=== PATIENT | female | born 1985 | race African-American/Black ===

== ENCOUNTER 2020-06-09 10:08 | Emergency (ER) | payer OTHER ==
[~2020-06-09] VITALS: Ht 172.7 cm; Wt 115.0 kg
[2020-06-09] MEDS ORDERED: IV NORMAL SALINE 1000ML BAG 1,000 ML IV ONE (10:30)
--- NOTE | 2020-06-09 10:33 | PHYS DOC ---
Past Medical History Past Medical History: No Pertinent History Past Surgical History: No Surgical History Smoking Status: Current Every Day Smoker Alcohol Use: Occasionally General Adult EDM: Chief Complaint: DIZZY/LIGHT HEADED HPI: HPI: 34-year-old female with no reported significant past medical history, who presents for evaluation of lightheadedness and dull gradual onset bifrontal headache that began this morning around 7:45 AM while working. She also reports a 1 week history of bilateral hand swelling and tingling sensation. No chest pain, dyspnea, palpitations, abdominal pain, nausea or vomiting. No syncope. Review of Systems: Review of Systems: Gen: No fever, chills. Eyes: No blurred vision, diplopia. ENT: No nasal congestion, sore throat. CV: No CP, palpitations. Resp. No SOB, cough. GI: No abd pain, N/V. : No dysuria, hematuria. Neuro: No weakness. Reports headache, lightheadedness. MSK: No myalgia, arthralgia, back pain. Reports hand swelling. Skin: No acute rash or lesion. Remainder of systems reviewed and negative unless otherwise specified. Heart Score: Risk Factors: Risk Factors: DM, Current or recent (<one month) smoker, HTN, HLP, family history of CAD, obesity. Risk Scores: Score 0 - 3: 2.5% MACE over next 6 weeks - Discharge Home Score 4 - 6: 20.3% MACE over next 6 weeks - Admit for Clinical Observation Score 7 - 10: 72.7% MACE over next 6 weeks - Early Invasive Strategies Allergies: Allergies: Allergies Coded Allergies Type Severity Reaction Last Updated Verified No Known Drug Allergies 06/09/20 No Physical Exam: PE: Gen: NAD. Well nourished. Head: NC/AT. Eyes: No scleral icterus. No conjunctival injection. PERRL. EOMI. No inducible nystagmus. ENT: MMM. Posterior OP clear. Neck: Supple. NT. CV: RRR. No M/R/G. Peripheral pulses intact. Resp: CTAB. Abd: Soft. NT. ND. MSK: No peripheral cyanosis. No edema. Neuro: A&Ox3. Strength & sensation grossly intact throughout. No dysmetria. Skin. Warm. Dry. Psych: Appropriate mood & affect. Current Patient Data: Labs: Laboratory Tests Test 06/09/20 10:34 06/09/20 10:42 Bedside Urine HCG, Qualitative Hcg negative (Negative) White Blood Count 4.9 x10^3/uL (4.0-11.0) Red Blood Count 4.51 x10^6/uL (3.50-5.40) Hemoglobin 13.7 g/dL (12.0-15.5) Hematocrit 40.9 % (36.0-47.0) Mean Corpuscular Volume 91 fL (79-100) Mean Corpuscular Hemoglobin 30 pg (25-35) Mean Corpuscular Hemoglobin Concent 33 g/dL (31-37) Red Cell Distribution Width 13.6 % (11.5-14.5) Platelet Count 205 x10^3/uL (140-400) Neutrophils (%) (Auto) 60 % (31-73) Lymphocytes (%) (Auto) 30 % (24-48) Monocytes (%) (Auto) 8 % (0-9) Eosinophils (%) (Auto) 1 % (0-3) Basophils (%) (Auto) 1 % (0-3) Neutrophils # (Auto) 2.9 x10^3/uL (1.8-7.7) Lymphocytes # (Auto) 1.5 x10^3/uL (1.0-4.8) Monocytes # (Auto) 0.4 x10^3/uL (0.0-1.1) Eosinophils # (Auto) 0.1 x10^3/uL (0.0-0.7) Basophils # (Auto) 0.0 x10^3/uL (0.0-0.2) Sodium Level 139 mmol/L (136-145) Chloride Level 104 mmol/L (98-107) Carbon Dioxide Level 25 mmol/L (21-32) Anion Gap 10 (6-14) Blood Urea Nitrogen 14 mg/dL (7-20) Estimated GFR (Cockcroft-Gault) 76.3 BUN/Creatinine Ratio 14 (6-20) Glucose Level 87 mg/dL (70-99) Calcium Level 9.0 mg/dL (8.5-10.1) Total Bilirubin 0.4 mg/dL (0.2-1.0) Aspartate Amino Transf (AST/SGOT) 20 U/L (15-37) Alkaline Phosphatase 61 U/L (46-116) Troponin I Quantitative < 0.017 ng/mL (0.000-0.055) Total Protein 6.6 g/dL (6.4-8.2) Albumin 3.4 g/dL (3.4-5.0) Albumin/Globulin Ratio 1.1 (1.0-1.7) Vital Signs: Vital Signs Date Time Temp Pulse Resp B/P (MAP) Pulse Ox O2 Delivery O2 Flow Rate FiO2 06/09/20 10:20 98.1 90 18 148/88 (108) 100 98.1 EKG: EKG: EKG at 1038 Sinus rhythm. Heart rate 70. Normal intervals. No STEMI. In terpreted by me. Radiology/Procedures: Radiology/Procedures: CT HEAD INDICATION: Frontal headache, dizziness / Spl. Instructions: / History: COMPARISON: None Available. Exposure: One or more of the following individualized dose reduction techniques were utilized for this examination: 1. Automated exposure control 2. Adjustment of the mA and/or kV according to patient size 3. Use of iterative reconstruction technique TECHNIQUE: 5 mm contiguous axial images were obtained from the skull base to the vertex in both bone and soft tissue algorithm. FINDINGS: No abnormal attenuation within the brain parenchyma. No evidence of acute intracranial hemorrhage. No extra-axial fluid collections. No mass effect or midline shift. Ventricular size is appropriate. Basal cisterns are patent. No fractures identified.Feldman-white differentiation is preserved.Globes and orbits are within normal limits. Paranasal sinuses and mastoid air cells are clear. IMPRESSION: No acute intracranial findings. Electronically signed by: Juan Alberto Springer MD (06/09/2020 11:01 AM) [id number] Course & Med Decision Making: Course & Med Decision Making Pertinent Labs and Imaging studies reviewed. (See chart for details) In summary, 34-year-old female who presents for evaluation of frontal headache and lightheadedness that began this morning. Also reports 1 week of bilateral hand swelling, but no cardiorespiratory complaints or leg swelling. No focal neurological deficits. No meningismus. No dysmetria. NIH stroke score 0. No inducible nystagmus. Her hands and wrists appear unremarkable to me without significant notable swelling. She is neurovascular intact distally with brisk capillary refill. Lab work is otherwise unremarkable. Troponin negative. EKG shows no acute injury pattern. CT head without contrast is negative for acute intracranial pathology. She remains well-appearing and nontoxic. No acute emergent pathology was identified. She will be discharged home with outpatient follow-up. Return precautions given. Anh Disclaimer: Anh Disclaimer: This electronic medical record was generated, in whole or in part, using a voice recognition dictation system. Departure Departure Impression: Primary Impression: Lightheadedness Additional Impression: Headache Disposition: 01 DC HOME SELF CARE/HOMELESS Condition: STABLE Patient Instructions: Dizziness, Anuc-ja-Aihc, General Headache Without Cause, Sqco-hc-Amih Scripts Butalb/Acetaminophen/Caffeine ([id number] CP) 1 Each Capsule 1 CAP PO TID for headache, #15 CAP 0 Refills Prov: BALJEET MANSFIELD DO 06/09/20 BALJEET MANSFIELD DO Jun 09, 2020 10:33
[2020-06-09 10:41] VITALS: BP 147/98
[2020-06-09 10:50] LABS: BASO % 1 % (0-3); EOS # 0.1 x10^3/uL (0.0-0.7); EOS % 1 % (0-3); HEMATOCRIT 40.9 % (36.0-47.0); HEMOGLOBIN 13.7 g/dL (12.0-15.5); LYMPH # 1.5 x10^3/uL (1.0-4.8); LYMPH % 30 % (24-48); MEAN CORPUSCULAR HEMOGLOBIN 30 pg (25-35); MEAN CORPUSCULAR HGB CONC 33 g/dL (31-37); MEAN CORPUSCULAR VOLUME 91 fL (79-100); MONO # 0.4 x10^3/uL (0.0-1.1); MONO % 8 % (0-9); NEUT # 2.9 x10^3/uL (1.8-7.7); NEUT % 60 % (31-73); PLATELET COUNT 205 x10^3/uL (140-400); RED BLOOD COUNT 4.51 x10^6/uL (3.50-5.40); RED CELL DISTRIBUTION WIDTH 13.6 % (11.5-14.5); WHITE BLOOD COUNT 4.9 x10^3/uL (4.0-11.0)
--- NOTE | 2020-06-09 11:03 | RAD ---
CT HEAD INDICATION: Frontal headache, dizziness / Spl. Instructions: / History: COMPARISON: None Available. Exposure: One or more of the following individualized dose reduction techniques were utilized for thi s examination: 1. Automated exposure control 2. Adjustment of the mA and/or kV according to patient size 3. Use of iterative reconstruction technique TECHNIQUE: 5 mm contiguous axial images were obtained from the skull base to the vertex in both bone and soft tissue algorithm. FINDINGS: No abnormal attenuation within the brain parenchyma. No evidence of acute intracranial hemorrhage. No extra-axial fluid collections. No mass effect or midline shift. Ventricular size is appropriate. Basal cisterns are patent. No fractures identified.Feldman-white differentiation is preserved.Globes and orbits are within normal l imits. Paranasal sinuses and mastoid air cells are clear. IMPRESSION: No acute intracranial findings. Electronically signed by: Juan Alberto Springer MD (06/09/2020 11:01 AM) [id number]
[2020-06-09 11:12] LABS: GFR 76.3
[2020-06-09 11:17] LABS: ALBUMIN 3.4 g/dL (3.4-5.0); ALBUMIN/GLOBULIN RATIO 1.1 (1.0-1.7); TOTAL BILIRUBIN 0.4 mg/dL (0.2-1.0); TOTAL PROTEIN 6.6 g/dL (6.4-8.2)
[2020-06-09] MEDS ORDERED: BUTA1CAP27 PO (11:44)
--- NOTE | 2020-06-09 14:38 | EKG ---
[facility] [address] [place] [address] Test Date: 2020-06-09 Test Time: 10:38:33 Pat Name: CHRISSY LEMUS Department: Room: Gender: F Food [employer]: : 1985 Requested By: BALJEET MANSFIELD Order Number: [id number] Reading MD: Measurements Intervals [place] Rate: 70 P: 27 IA: 176 QRS: 43 QRSD: 72 T: 34 QT: 354 QTc: 385 Interpretive Statements SINUS RHYTHM NORMAL ECG RI6.01 No previous ECG available for comparison
== END 2020-06-09 12:30 | disposition home or self-care (01) ==
LOC: ER 10:08
DX: R42 Dizziness and giddiness (principal); R51.9 Headache, unspecified; R20.2 Paresthesia of skin; R22.33 Localized swelling, mass and lump, upper limb, bilateral; F17.200 Nicotine dependence, unspecified, uncomplicated
CPT/HCPCS: 36415; 70450; 80053; 81025; 83735; 84484; 85025; 93005; 96360; 96361; 99285; J7030

== ENCOUNTER 2021-01-01 20:33 | Emergency (ER) | payer OTHER ==
[~2021-01-01] VITALS: Ht 172.7 cm; Wt 105.0 kg
[~2021-01-01 20:33] MED LIST: BUTA1CAP27 PO
[2021-01-01] MEDS ORDERED: LIDOCAINE 2%/EPI 1:100,000 20 ML VIAL. INJ ONE (20:45)
[2021-01-01] MEDS ORDERED: MUPIROCIN 2 % OINTMENT 22GM TUBE. TP ONE (20:45)
[2021-01-01] MEDS ORDERED: IBUPROFEN 200 MG TABLET. PO ONE (21:30)
[2021-01-01 21:41] VITALS: BP 124/85
--- NOTE | 2021-01-01 22:21 | RAD ---
Exam: Right and left forearm 2 views INDICATION: Bilateral forearm laceration. TECHNIQUE: Frontal and lateral views of the right and left forearm Comparisons: None FINDINGS: Left: Bone mineralization is normal. No acute or healed fractures. Mild soft tissue irregularity at the brett odin aspect of the mid forearm. No radiopaque foreign body identified. Joint spaces are well-maintaine d. Right: Bone mineralization is normal. No acute or healed fractures. Soft tissue irregularity along the dorsa l aspect of the mid forearm. Joint spaces are well-maintained. IMPRESSION: No acute osseous abnormality of the right or left forearm. No radiopaque foreign body identified. Electronically signed by: Claudio Ruffin MD (01/01/2021 10:19 PM) MYRTLE
[2021-01-01] MEDS ORDERED: MUPI22OI2 TP (23:50)
--- NOTE | 2021-01-01 23:51 | PHYS DOC ---
Past Medical History Past Medical History: No Pertinent History Past Surgical History: No Surgical History Smoking Status: Current Every Day Smoker Alcohol Use: Heavy Drug Use: Marijuana General Adult EDM: Chief Complaint: LACERATION/AVULSION HPI: HPI: Patient is a 35 year old female presents with bilateral forearm lacerations after "punching" through a living room window when she got upset with her family just prior to arrival. Patient reports she has been drinking ETOH. Reports she was mad because her sister didn't ask her to be the maid of honor in the sisters wedding. Reports she was so mad that she hit the window with both of her hands and it ended up actually breaking. Reports significant amount of blood from both forearms. Denies . Review of Systems: Review of Systems: Constitutional: Denies fever or chills Eyes: Denies redness or eye pain HENT: Denies nasal congestion or sore throat Respiratory: Denies cough or shortness of breath Cardiovascular: Denies chest pain or palpitations GI: Denies abdominal pain, nausea, or vomiting : Denies dysuria or hematuria Musculoskeletal: Denies back pain; reports bilateral forearm pain at site of lacerations Integument: Denies rash; reports lacerations to bilateral forearms Neurologic: Denies headache, focal weakness or sensory changes Complete systems were reviewed and found to be within normal limits, except as documented in this note. Heart Score: C/O Chest Pain: N/A Current Medications: Current Medications Medications (Trade) Dose Ordered Sig/Jose Start Time Stop Time Status Last Admin Dose Admin Ibuprofen (Motrin) 600 mg 1X ONCE 01/01/21 21:30 01/01/21 21:31 DC Lidocaine/ Epinephrine (LIDOCAINE 2%-EPI 1:100,000 multi-dose) 20 ml 1X ONCE 01/01/21 20:45 01/01/21 20:46 DC 01/01/21 20:54 20 ML Mupirocin (Bactroban) 1 dinorah 1X ONCE 01/01/21 20:45 01/01/21 20:46 DC 01/01/21 20:54 1 DINORAH Allergies: Allergies: Allergies Coded Allergies Type Severity Reaction Last Updated Verified No Known Drug Allergies 06/09/20 No Physical Exam: PE: Constitutional: Well developed, well nourished, no acute distress, non-toxic appearance HENT: Normocephalic, atraumatic Eyes: PERRL, EOMI, conjunctiva normal, no discharge Neck: Normal range of motion, no tenderness, supple Lungs & Thorax: No respiratory distress, equal chest rise and fall Abdomen: Soft, no tenderness Skin: Warm, dry, no erythema, lacerations as below: Right medial mid-forearm: 1) more proximal laceration: 6cm 2) more distal laceration: 2cm Left medial mid-forearm: proximal laceration: 4cm Left wrist anterior laceration: 2cm Extremities: Bilateral forearm tenderness at site of lacerations, ROM intact, no edema Neurologic: Alert and oriented X 3, normal motor function, normal sensory function, no focal deficits noted Psychologic: Affect normal, judgment normal Current Patient Data: Vital Signs: Vital Signs Date Time Temp Pulse Resp B/P (MAP) Pulse Ox O2 Delivery O2 Flow Rate FiO2 01/01/21 21:06 98.4 108 24 147/98 (114) 98 Room Air 98.4 EKG: EKG: [] Radiology/Procedures: Radiology/Procedures: PROCEDURE: FOREARM BILAT Exam: Right and left forearm 2 views INDICATION: Bilateral forearm laceration. TECHNIQUE: Frontal and lateral views of the right and left forearm Comparisons: None FINDINGS: Left: Bone mineralization is normal. No acute or healed fractures. Mild soft tissue irregularity at the dorsal aspect of the mid forearm. No radiopaque foreign body identified. Joint spaces are well-maintained. Right: Bone mineralization is normal. No acute or healed fractures. Soft tissue irregularity along the dorsal aspect of the mid forearm. Joint spaces are well- maintained. IMPRESSION: No acute osseous abnormality of the right or left forearm. No radiopaque foreign body identified. Electronically signed by: Claudio Ruffin MD (01/01/2021 10:19 PM) [facility] Course & Med Decision Making: Course & Med Decision Making Pertinent Lab studies reviewed. (See chart for details) Patent presents with report of punching a window at her home with both hands just prior to arrival. Window reportedly broke and caused several lacerations to bilateral forearms. XR without retained foreign bodies. Pain addressed. Wounds cleaned, irrigated, repaired, and dressed. Patient stable for discharge with outpatient follow-up with PCP. Discussed findings and plan with patient, who acknowledges understanding and agreement. Anh Disclaimer: Anh Disclaimer: This electronic medical record was generated, in whole or in part, using a voice recognition dictation system. Laceration/Wound Repair Laceration/Wound Repair : Wound Location: upper extremity (Bilateral forearms) Wound Explored: no foreign body removed Irrigated w/ Saline (ccs): 400 Anesthesia: Lidocaine w/ Epi (2%) Volume Anesthetic (ccs): 20 Wound Debrided: moderate Wound Repaired With: sutures Sterile Dressing Applied?: Yes Progress Verbal consent obtained. Time out performed. Hand hygiene utilized. Wounds cleaned with ChloraPrep. Anesthesia obtained via a 25-gauge hypodermic needle with total of (20) mL's of lidocaine 2% with epinephrine. Copious irrigation performed. Wound well approximated with sutures as follows: Right medial mid-forearm: 1) more proximal laceration: 6cm, repaired with buried interrupted Vicryl 3-0 x 3 and then 3-0 Nylon x 10 simple interrupted sutures. 2) more distal laceration: 2cm, repaired with 3-0m Nylon x 3 Left medial mid-forearm: 1) more proximal laceration: 4cm, repaired with simple interrupted 3-0 Nylon x 6 and 4-0 Nylon x 4 Left wrist anterior laceration: 1) 2cm, repaired with 4-0 Nylon x 3 Patient tolerated procedure well and without difficulty. Empiric antibiotic ointment applied prior to sterile dressing. Departure Departure Impression: Primary Impression: Laceration of forearm, left Qualified Codes: S51.812A - Laceration without foreign body of left forearm, initial encounter Additional Impression: Laceration of forearm, right Qualified Codes: S51.811A - Laceration without foreign body of right forearm, initial encounter Disposition: HOME / SELF CARE / HOMELESS Condition: STABLE Referrals: NO PCP (PCP) Patient Instructions: Sutured Wound Care, Egwy-es-Fuhg Additional Instructions: Use [id number] ibuprofen and Tylenol for pain or discomfort. Do not soak your wound. You may shower. Clean wound daily with soap and water. Change dressing 2 times daily. Use prescribed antibiotic ointment with each dressing change. Sutures need to be removed in 10 days. Present to your family doctor or local urgent care for removal. You may also present to the ED but it will be an additional visit/charge. After suture removal you may use Vitamin E ointment to soften the wound and prevent scarring. Scripts Mupirocin (MUPIROCIN OINTMENT) 22 Gm Oint...g. 1 DINORAH TP BID for WOUND CARE for 10 Days, #20 EACH Prov: PARISA AVALOS DO 01/01/21 PARISA AVALOS DO Jan 01, 2021 23:51
== END 2021-01-01 23:55 | disposition home or self-care (01) ==
LOC: ER 20:33
DX: S51.812A Laceration without foreign body of left forearm, initial encounter (principal); F17.200 Nicotine dependence, unspecified, uncomplicated; F10.20 Alcohol dependence, uncomplicated; Y90.9 Presence of alcohol in blood, level not specified; W22.8XXA Striking against or struck by other objects, initial encounter; Y93.89 Activity, other specified; Y92.89 Other specified places as the place of occurrence of the external cause; Y99.8 Other external cause status
CPT/HCPCS: 12005; 73090; 99283; J3490

== ENCOUNTER 2021-01-16 13:57 | Emergency (ER) | payer OTHER ==
[~2021-01-16 13:57] MED LIST changes: +MUPI22OI2 TP
== END 2021-01-16 15:00 | disposition left against medical advice (07) ==
LOC: ER 13:57
DX: Z48.02 Encounter for removal of sutures (principal); Z53.21 Procedure and treatment not carried out due to patient leaving prior to being seen by health care provider